=== PATIENT | male | born 2005 | race African-American/Black ===

== ENCOUNTER 2025-08-08 20:45 | Emergency (ER) | payer MEDICAID ==
[~2025-08-08] VITALS: Ht 175.3 cm; Wt 83.0 kg
[2025-08-08 21:00] VITALS: O2SAT 98
[2025-08-08] MEDS ORDERED: IBUP-2028 MT (21:55)
[2025-08-08] MEDS: IBUPROFEN 600MG TABLET PO ONE (22:10)
[2025-08-08 22:11] VITALS: BP 115/76; PULSE 69; RESP 13; TEMP 37; O2SAT 99
== END 2025-08-08 22:26 | disposition home or self-care (01) ==
LOC: ER 20:45
DX: M25.561 Pain in right knee (principal); J45.909 Unspecified asthma, uncomplicated; Z88.1 Allergy status to other antibiotic agents; Z88.0 Allergy status to penicillin; X58.XXXA Exposure to other specified factors, initial encounter; Y93.89 Activity, other specified; Y92.89 Other specified places as the place of occurrence of the external cause; Y99.8 Other external cause status
CPT/HCPCS: 29505; 73562; 99283